=== PATIENT | female | born 1950 | race Caucasian/White ===

== ENCOUNTER 2020-06-23 14:14 | Emergency (ER) | payer MEDICARE, MEDICAID ==
--- NOTE | 2020-06-23 14:50 | ER Document Report ---
ED Medical Screen (RME) - General Chief Complaint: Abdominal Pain Stated Complaint: ABDOMINAL PAIN Time Seen by Provider: 06/23/20 14:42 Mode of Arrival: Wheelchair Information source: Patient Notes: HPI; 89-year-old female with past medical history significant for A. fib currently on Xarelto, CHF presents to the emergency room complaining of abdominal pain and bloating for the past 5 days. Also complains of some intermittent mid chest pressure for the past 2 days. Describes the abdominal discomfort as pressure. Denies any nausea or vomiting., States she had 1 day of diarrhea, states she is now not had a bowel movement in 2 days. She denies any fevers. She denies any COVID-19 exposure. No medications for symptoms. PE: Alert and oriented x3. Mild distress noted. Lungs: Clear to auscultation without rales, rhonchi, wheezes. Heart regular rate rhythm without murmurs, rubs, gallops. I have greeted and performed a rapid initial assessment of this patient. A comprehensive ED assessment and evaluation of the patient, analysis of test results and completion of the medical decision making process will be conducted by additional ED providers. I have specifically instructed the patient or family members with the patient to immediately return to any nursing staff should anything change in the patient's condition or with their chief complaint. TRAVEL OUTSIDE OF THE [place] IN LAST 30 DAYS: No Physical Exam - Vital signs Vitals: Temp Pulse Resp BP Pulse Ox 99.9 F 74 20 118/61 92 06/23/20 14:34 06/23/20 14:34 06/23/20 14:34 06/23/20 14:34 06/23/20 14:34 Course - Vital Signs Vital signs: Temp Pulse Resp BP Pulse Ox 99.9 F 74 20 118/61 92 06/23/20 14:34 06/23/20 14:34 06/23/20 14:34 06/23/20 14:34 06/23/20 14:34
[2020-06-23] MEDS ORDERED: ONDANSETRON HCL INJ/PF 4 MG/2 ML SDV IV ONE (14:51)
[2020-06-23] MEDS ORDERED: MORPHINE SULFATE 10 MG/ML INJ IV ONE (14:51)
[2020-06-23 15:47] LABS: ABSOLUTE BASOPHILS # (AUTO) 0.1 10^3/uL (0.0-0.2); ABSOLUTE EOSINOPHILS # (AUTO) 0.2 10^3/uL (0.0-0.6); ABSOLUTE LYMPHOCYTES (AUTO) 1.7 10^3/uL (0.5-4.7); ABSOLUTE MONOCYTES (AUTO) 0.6 10^3/uL (0.1-1.4); ABSOLUTE NEUT (AUTO) 5.7 10^3/uL (1.7-8.2); BASOPHILS % (AUTO) 0.7 % (0-2); EOSINOPHILS % (AUTO) 1.9 % (0-6); HEMATOCRIT 39.9 % (36.0-47.0); HEMOGLOBIN 13.7 g/dL (12.0-15.5); LYMPHOCYTES % (AUTO) 20.5 % (13-45); MEAN CORPUSCULAR HEMOGLOBIN 29.8 pg (27.0-33.4); MEAN CORPUSCULAR HGB CONC 34.3 g/dL (32.0-36.0); MEAN CORPUSCULAR VOLUME 87 fl (80-97); PLATELET COUNT 269 10^3/uL (150-450); RED CELL DISTRIBUTION WIDTH 13.3 % (11.5-14.0); SEGMENTED NEUTROPHILS % (AUTO) 69.9 % (42-78); TOTAL CELLS COUNTED % (AUTO) 100 %; WHITE BLOOD COUNT 8.2 10^3/uL (4.0-10.5)
[2020-06-23 15:54] LABS: APPEARANCE,URINE CLEAR; BILIRUBIN,URINE NEGATIVE (NEGATIVE); COLOR,URINE YELLOW; GLUCOSE, URINE NEGATIVE (NEGATIVE); KETONES,URINE NEGATIVE (NEGATIVE); LEUKOCYTE ESTERASE,URINE NEGATIVE (NEGATIVE); NITRITE,URINE NEGATIVE (NEGATIVE); PROTEIN,URINE NEGATIVE (NEGATIVE); UROBILINOGEN,URINE NEGATIVE mg/dL (<2.0)
[2020-06-23 15:57] LABS: INTERNATIONAL RATION (INR) 1.28; PROTHROMBIN TIME 16.2 SEC (11.4-15.4)
[2020-06-23 16:07] LABS: ALKALINE PHOSPHATASE 157 U/L (38-126); ANION GAP 6 (5-19); ASPARTATE AMINO TRANSFERASE 29 U/L (14-36); BILIRUBIN,DIRECT 0.1 mg/dL (0.0-0.4); BILIRUBIN,TOTAL 0.7 mg/dL (0.2-1.3); BLOOD UREA NITROGEN 13 mg/dL (7-20); CARBON DIOXIDE 34 mmol/L (22-30); CHLORIDE 98 mmol/L (98-107); GLUCOSE 122 mg/dL (75-110); POTASSIUM 4.1 mmol/L (3.6-5.0); TOTAL PROTEIN 7.6 g/dL (6.3-8.2)
[2020-06-23 16:15] LABS: NT PRO BNP 126 pg/mL (<125)
[2020-06-23 16:20] LABS: TROPONIN I < 0.012 ng/mL
--- NOTE | 2020-06-23 16:57 | RADIOLOGY REPORT (SQ) ---
EXAM DESCRIPTION: CT ABD/PELVIS WITH IV ONLY IMAGES COMPLETED DATE/TIME: 06/23/2020 4:34 pm REASON FOR STUDY: abdominal pain COMPARISON: None. TECHNIQUE: CT scan of the abdomen and pelvis performed using helical scanning technique with dynamic intravenous contrast injection. No oral contrast. Images reviewed with lung, soft tissue, and bone windows. Reconstructed coronal and sagittal MPR images reviewed. Delayed images for evaluation of the urinary system also acquired. All images stored on PACS. All CT scanners at this facility use dose modulation, iterative reconstruction, and/or weight based d osing when appropriate to reduce radiation dose to as low as reasonably achievable (ALARA). [facility]: Dose Right [facility]: CareDose [facility]: Dose Right [facility]: Teradose 4D [facility]: Logic Instrument CONTRAST TYPE AND DOSE: Contrast/concentration: Isovue 350.00 mmol/ml; Total Contrast Delivered: 99. 8 ml; Total Saline Delivered: 22.0 ml RENAL FUNCTION: GFR > 60. RADIATION DOSE: CT Rad equipment meets quality standard of care and radiation dose reduction techniq ues were employed. CTDIvol: 19.2 - 21.1 mGy. DLP: 2191 mGy-cm. LIMITATIONS: None. FINDINGS: LOWER CHEST: No acute abnormality. LIVER: The morphology of the liver is noncirrhotic. The portal veins are patent. There is no hepati c mass. SPLEEN: No splenomegaly or splenic mass. PANCREAS: No acute gross abnormality of the pancreas. GALLBLADDER: No acute gross abnormality of the gallbladder. ADRENAL GLANDS: No mass or asymmetry. RIGHT KIDNEY AND URETER: No solid mass, hydronephrosis, nephrolithiasis, hydroureter or ureterolithia sis. LEFT KIDNEY AND URETER: No solid mass, hydronephrosis, nephrolithiasis, hydroureter or ureterolithias is. AORTA AND VESSELS: No aneurysm or dissection of the abdominal aorta. RETROPERITONEUM: No retroperitoneal adenopathy, hemorrhage or mass. BOWEL AND PERITONEAL CAVITY: No bowel obstruction, bowel wall thickening or pericolonic/ perienteric inflammation. No mesenteric adenopathy, free intraperitoneal fluid or mesenteric/ omental inflammati on. APPENDIX: Normal. PELVIS: The uterus is surgically absent. The urinary bladder is contracted. There is no abnormality of the adnexa. ABDOMINAL WALL: No mass or hernia. BONES: Degenerative spondylosis and facet joint arthropathy of the lumbar spine. There is no acute f racture. OTHER: No other findings. IMPRESSION: No acute intra-abdominal abnormality. TECHNICAL DOCUMENTATION: JOB ID: [id number] Quality ID # [id number]: Final reports with documentation of one or more dose reduction techniques (e.g., Au tomated exposure control, adjustment of the mA and/or kV according to patient size, use of iterative reconstruction technique) 2010 [employer]- All Rights Reserved Reading location - IP/workstation name: [email or web address]
--- NOTE | 2020-06-23 17:01 | EKG REPORT ---
SEVERITY:- NORMAL ECG - SINUS RHYTHM : Confirmed by: Salvador Dempsey MD 23-Jun-2020 17:00:52
[2020-06-23] MEDS ORDERED: MAG HYDROX/AL HYDROX/SIMETH SUSP 30 ML UDCUP PO ONE (17:23)
[2020-06-23] MEDS ORDERED: METOCLOPRAMIDE HCL ORAL SOLN 10 MG/10 ML UDCUP PO ONE (17:23)
[2020-06-23] MEDS ORDERED: LIDOCAINE 2% VISCOUS SOLN 15 ML UDCUP PO ONE (17:23)
--- NOTE | 2020-06-23 17:39 | ER Document Report ---
ED GI/ - General Chief Complaint: Abdominal Distention Stated Complaint: ABDOMINAL PAIN Time Seen by Provider: 06/23/20 14:42 Primary Care Provider: DERIC WOODALL NP [Primary Care Provider] - Follow up as needed Mode of Arrival: Wheelchair Notes: HPI: 69-year-old female that states for 5 days she has had some intermittent epigastric discomfort with no radiation to the chest, cough, shortness of breath, lower abdominal symptoms. She states some minimal radiation to the back. Hurts more when she stands up straight. She denies any cough, fevers, vomiting, or diarrhea. She states she does have a history of heart failure but thought that this was a "bloating" so she has been drinking copious glasses of water according to patient report. Patient still has a gallbladder. History of a hysterectomy. No other abdominal surgery. ROS: See HPI All other review of systems reviewed and otherwise negative Reviewed vital signs and nursing note as charted by RN. PHYSICAL EXAM: CONSTITUTIONAL: Alert and oriented and responds appropriately to questions. Well-appearing; well-nourished HEAD: Normocephalic; atraumatic EYES: PERRL; Sclerae non-icteric ENT: Normal nose; no rhinorrhea; moist mucous membranes; pharynx without lesions noted NECK: Supple without meningismus; non-tender; no cervical lymphadenopathy, no masses CARD: Regular rate and rhythm; no murmurs; symmetric distal pulses RESP: Normal chest excursion without splinting or tachypnea; breath sounds clear and equal bilaterally; no wheezes, no rhonchi, no rales ABD/GI: Normal bowel sounds; elevated BMI; some tenderness to the epigastric and right upper quadrant. No chest wall tenderness. No rebound or guarding. No lower abdominal tenderness or abdominal bruits present BACK: The back appears normal and is non-tender to palpation EXT: Normal ROM in all joints; non-tender to palpation; no edema SKIN: No acute lesions noted NEURO: CN 2-12 intact; 5/5 bilateral upper and lower extremity strength with sensation intact to light touch PSYCH: The patient's mood and manner are appropriate. Grooming and personal hygiene are appropriate. TRAVEL OUTSIDE OF THE [place] IN LAST 30 DAYS: No - Related Data Allergies/Adverse Reactions: No Known Allergies Allergy (Verified 06/23/20 14:50) Past Medical History - General Information source: Patient - Social History Smoking Status: Never Smoker Chew tobacco use (# tins/day): No Frequency of alcohol use: None Drug Abuse: None Family History: Reviewed & Not Pertinent Physical Exam - Vital signs Vitals: Temp Pulse Resp BP Pulse Ox 99.9 F 74 20 118/61 92 06/23/20 14:34 06/23/20 14:34 06/23/20 14:34 06/23/20 14:34 06/23/20 14:34 Course - Re-evaluation Re-evalutation: Given the history and physical examination, we will order an EKG, cardiac panel, liver panel, lipase, and a CT scan of the abdomen and pelvis. Would like to evaluate for the possibility of an acute intra-abdominal infection, pancreatitis, transaminitis, or cardiac equivalent pain. Patient has no lower abdominal tenderness or flank pain. I do believe ACS, PE, dissection to be unlikely. Patient does have a history of heart failure but states she has been drinking excessive water to help the "bloating feeling". I will add a BNP. 06/23/20 17:38 Labs as recorded. BNP as recorded. Patient has no lower extremity edema. CT scan shows no obvious acute intra-abdominal pathology. Given the possibility of radiolucent gallstones, I will obtain an ultrasound of the right upper quadrant. I will also provide a GI cocktail. Troponin normal. 06/23/20 17:39 EKG shows heart of 69, normal sinus rhythm, normal axis, no ST elevation or depression. 06/23/20 18:45 Repeat abdominal exam is improved. Ultrasound as recorded. Normal troponin. Unremarkable EKG. Patient denies any pain to the chest. Given the time course of the patient's symptomatology, with no active chest pain, 5 days of symptoms, do not believe a repeat troponin is necessary. Given the above history and physical examination, patient will be discharged home with strict return precautions and provided an acid therapy - Vital Signs Vital signs: Temp Pulse Resp BP Pulse Ox 99.9 F 74 20 118/61 92 06/23/20 14:34 06/23/20 14:34 06/23/20 14:34 06/23/20 14:34 06/23/20 14:34 - Laboratory Result Diagrams: 06/23/20 15:20 06/23/20 15:20 Laboratory results interpreted by me: 1206/23/20 06/23/20 15:20 15:20 15:20 PT 16.2 H Carbon Dioxide 34 H Glucose 122 H Alkaline Phosphatase 157 H NT-Pro-B Natriuret Pep 126 H Discharge - Discharge Clinical Impression: Abdominal discomfort, epigastric Condition: Good Disposition: HOME, SELF-CARE Additional Instructions: Come back immediately for any increased pain, change in location or quality of pain, fevers or vomiting, shortness of breath, leg swelling, or any other acute problems. Please make sure that you follow-up with your primary care physician and possibly the substation design draftsperson that I have referred you to. Please also make sure that you take the Nexium daily as provided. Prescriptions: Omeprazole Magnesium [Prilosec Otc] 20 mg PO DAILY #30 tablet. Referrals: DERIC WOODALL NP [Primary Care Provider] - Follow up as needed CAPO LUIS MD [ACTIVE STAFF] - Follow up as needed
--- NOTE | 2020-06-23 17:50 | RADIOLOGY REPORT (SQ) ---
EXAM DESCRIPTION: CHEST 2 VIEWS IMAGES COMPLETED DATE/TIME: 06/23/2020 4:57 pm REASON FOR STUDY: chest pain COMPARISON: None. EXAM PARAMETERS: NUMBER OF VIEWS: two views TECHNIQUE: Digital Frontal and Lateral radiographic views of the chest acquired. RADIATION DOSE: NA LIMITATIONS: none FINDINGS: LUNGS AND PLEURA: No opacities, masses or pneumothorax. No pleural effusion. MEDIASTINUM AND HILAR STRUCTURES: No masses or contour abnormalities. HEART AND VASCULAR STRUCTURES: Heart normal size. No evidence for failure. BONES: No acute findings. HARDWARE: Pacemaker. OTHER: No other significant finding. IMPRESSION: NO ACUTE RADIOGRAPHIC FINDING IN THE CHEST. TECHNICAL DOCUMENTATION: JOB ID: [id number] 2010 [employer]- All Rights Reserved Reading location - IP/workstation name: [email or web address]
--- NOTE | 2020-06-23 18:31 | RADIOLOGY REPORT (SQ) ---
EXAM DESCRIPTION: U/S ABDOMEN LIMITED W/O DOP IMAGES COMPLETED DATE/TIME: 06/23/2020 6:21 pm REASON FOR STUDY: 9; RUQ pain COMPARISON: None. TECHNIQUE: Dynamic and static grayscale images acquired of the abdomen and recorded on PACS. Additio nal selected color Doppler and spectral images recorded. LIMITATIONS: None. FINDINGS: PANCREAS: No masses. Visualized pancreatic duct normal caliber. LIVER: Hepatomegaly. Increased echogenicity. LIVER VASCULATURE: Normal directional flow of the main portal vein and hepatic veins. GALLBLADDER: No stones. Normal wall thickness. No pericholecystic fluid. ULTRASOUND-DETECTED BECKER'S SIGN: Negative. INTRAHEPATIC DUCTS AND COMMON DUCT: CBD and intrahepatic ducts normal caliber. No filling defects. AORTA: No aneurysm. RIGHT KIDNEY: Normal size 10 cm. . Normal echogenicity. No solid or suspicious masses. No hydroneph rosis. No calcifications. PERITONEAL AND RIGHT PLEURAL SPACE: No ascites or effusions. OTHER: No other significant findings. IMPRESSION: Hepatomegaly with hepatic steatosis. Normal gallbladder. TECHNICAL DOCUMENTATION: JOB ID: [id number] [employer]- All Rights Reserved Reading location - IP/workstation name: [email or web address]
[2020-06-23 19:35] VITALS: BP 113/85
== END 2020-06-23 19:35 | disposition home or self-care (01) ==
LOC: ER 14:14
DX: R10.816 Epigastric abdominal tenderness (principal); R10.11 Right upper quadrant pain; R10.811 Right upper quadrant abdominal tenderness; K76.0 Fatty (change of) liver, not elsewhere classified; I50.9 Heart failure, unspecified; I48.91 Unspecified atrial fibrillation; Z79.01 Long term (current) use of anticoagulants; Z90.710 Acquired absence of both cervix and uterus
CPT/HCPCS: 93005; 99285; 96374; 96375; 36415; 83690; 85025; 85610; 80053; 81001; 84484; 83880; 71046; 76705; 74177; 93010; J3490; A9270 ×2; J2270; J2405